=== PATIENT | male | born 1955 | race Two or more races ===

== ENCOUNTER → 2023-04-17 | Outpatient (REF) | payer OTHER | LOC: M SFHCDERM 12:28 | PROVIDERS: ATTEND Nurse Practitioner Family | DX: C44.329 Squamous cell carcinoma of skin of other parts of face (principal) ==

== ENCOUNTER 2023-07-05 08:34 | Inpatient (IN) | payer OTHER ==
[2023-07-05] VITALS (12 sets, daily range): BP systolic 97–128; BP diastolic 52–70; TEMP 96.6–98.8; O2SAT 93–98
[~2023-07-05] VITALS: Ht 170.2 cm; Wt 97.0 kg
[2023-07-05] MEDS ORDERED: cefTRIAXone SOD 2 GM in D5W MINI-BAG PLUS 50 ML IV ONE (09:05)
[2023-07-05] MEDS ORDERED: PANTOPRAZOLE 40MG VIAL IV ONE (09:05)
[2023-07-05] MEDS ORDERED: NS 500 ML IV ONE (09:05)
[2023-07-05] MEDS: NS IV ONE ×2 (09:05→09:30)
[2023-07-05 09:27] LABS: VENOUS BASE EXCESS -2.1 (-2.0-2.0); VENOUS HCO3 22.9 MMOL/L (23.0-27.0); VENOUS O2 SATURATION 94.2 % (60.0-80.0); VENOUS PARTIAL PRESSURE CO2 40.4 mmHg (38.0-50.0); VENOUS PH 7.372 UNITS (7.330-7.430); VENOUS STANDARD HCO3 22.6 MMOL/L; VENOUS TOTAL CO2 24.2 MMOL/L (24.0-28.0)
[2023-07-05 09:31] LABS: BASO # 0.1 10^3/uL (0.0-0.2); BASO % 0.4 % (0.0-1.0); EOS # 0.1 10^3/uL (0.0-0.5); EOS % 0.7 % (0.0-3.0); HEMATOCRIT 26.4 % (42.0-52.0); HEMOGLOBIN 8.6 g/dl (13.5-17.5); LYMPH # 1.6 10^3/uL (1.5-5.0); MEAN CORPUSCULAR HEMOGLOBIN 30.6 pg (27.0-33.0); MEAN CORPUSCULAR HGB CONC 32.6 g/dl (32.0-36.5); MONO # 1.1 10^3/uL (0.0-0.8); MONO % 7.7 % (2.0-8.0); NEUTROPHILS # 10.8 10^3/uL (1.5-8.5); NEUTROPHILS % 78.5 % (36.0-66.0); PLATELET COUNT, AUTOMATED 358 10^3/uL (150-450); RED BLOOD COUNT 2.81 10^6/uL (4.30-6.10); WHITE BLOOD COUNT 13.7 10^3/uL (4.0-10.0)
[2023-07-05 09:46] LABS: INR 1.12; PROTHROMBIN TIME 14.1 SECONDS (12.5-14.5)
[2023-07-05 09:57] LABS: OSMOLALITY SERUM 305 MOSM/KG (280-301)
[2023-07-05 09:58] LABS: ETHYL ALCOHOL (ETHANOL) 0.004 % (0.000-0.010)
[2023-07-05 09:59] LABS: ALBUMIN 2.4 G/DL (3.2-5.2); ALKALINE PHOSPHATASE 56 U/L (46-116); ALT/SGPT 17 U/L (7.0-40); AST/SGOT 18 U/L (<34); BILIRUBIN,DIRECT 0.2 MG/DL (<0.4); BILIRUBIN,TOTAL 0.4 MG/DL (0.3-1.2); BLOOD UREA NITROGEN 44 MG/DL (9-23); CALCIUM LEVEL 8.2 MG/DL (8.3-10.6); CARBON DIOXIDE LEVEL 23 MMOL/L (20-31); CHLORIDE LEVEL 105 MMOL/L (98-107); CREATININE FOR GFR 1.21 MG/DL (0.70-1.30); GLOMERULAR FILTRATION RATE > 60.0 (>49); GLUCOSE, FASTING 247 MG/DL (74-106); POTASSIUM SERUM 5.7 MMOL/L (3.5-5.1); SALICYLATE LEVEL < 3.0 MG/DL (<30); SODIUM LEVEL 139 MMOL/L (136-145); TOTAL PROTEIN 5.4 G/DL (5.7-8.2)
[2023-07-05 10:01] LABS: THYROID STIMULATING HORMONE 0.535 uIU/ML (0.55-4.78)
[2023-07-05] MEDS ORDERED: ONDANSETRON 4MG 2ML VIAL IV ONE (10:20)
[2023-07-05] MEDS ORDERED: ISOVUE-370 76% 100ML VIAL As Ordered ONE (10:50)
[2023-07-05] MEDS ORDERED: fentaNYL 100 MCG/2 ML INJECTION IV PRN (11:30)
[2023-07-05] MEDS: SUCRALFATE SUSP 1GM/10ML UD PO SCH ×2 (11:38→17:44)
[2023-07-05] MEDS: OCTREOTIDE ACETATE 100MCG/ML VIAL **IV ADMINISTRATION ONLY IV SCH ×2 (11:39→20:14)
[2023-07-05 11:48] LABS: LIPASE 26 U/L (12-53)
[2023-07-05] MEDS ORDERED: MED REC IN PROGRESS XX SCH (12:10)
[2023-07-05] MEDS ORDERED: TRUL0.5I SC (13:14)
[2023-07-05] MEDS ORDERED: ACET-910 PO (13:14)
[2023-07-05] MEDS ORDERED: LISI40TA4 PO (13:14)
[2023-07-05] MEDS ORDERED: METF10004 PO (13:14)
[2023-07-05] MEDS ORDERED: VITA1TAB35 PO (13:14)
[2023-07-05] MEDS ORDERED: VITA-176 PO (13:14)
[2023-07-05] MEDS ORDERED: LORA1TAB23 PO (13:14)
[2023-07-05] MEDS ORDERED: ATOR40TA75 PO (13:14)
[2023-07-05] MEDS ORDERED: DICL100G10 TOP (13:14)
[2023-07-05] MEDS ORDERED: METO25TA4 PO (13:14)
[2023-07-05] MEDS ORDERED: MIRT-88 PO (13:14)
[2023-07-05] MEDS ORDERED: METH-1165 PO (13:14)
[2023-07-05] MEDS ORDERED: ASPI81CH33 PO (13:14)
[2023-07-05] MEDS ORDERED: HOME MED LIST COMPLETE! XX SCH (13:30)
[2023-07-05] MEDS ORDERED: GLUCAGON INJ 1MG VIAL SC PRN (16:15)
[2023-07-05] MEDS ORDERED: GLUCOSE 4GM CHEW TABLET PO PRN (16:15)
[2023-07-05] MEDS ORDERED: DEXTROSE 50% 50ML SYRINGE IV PRN (16:15)
[2023-07-05] MEDS ORDERED: ACETAMINOPHEN *IV* 1,000 MG in IV 1 EA IV ONE (17:00)
[2023-07-05 17:04] LABS: HEMATOCRIT 27.8 % (42.0-52.0); HEMOGLOBIN 9.3 g/dl (13.5-17.5)
[2023-07-05] MEDS: INSULIN LISPRO (NovoLOG) PER UNIT SC SCH ×2 (17:30→20:16)
[2023-07-05] MEDS: MIRTAZAPINE 15 MG TAB PO SCH (20:14)
[2023-07-05] MEDS: PANTOPRAZOLE 40MG VIAL IV SCH (20:14)
[2023-07-05] MEDS: LORazepam 0.5 MG TAB PO SCH (20:14)
[2023-07-06 00:02] VITALS: BP 111/55; TEMP 96.7; O2SAT 97
[2023-07-06] MEDS: SUCRALFATE SUSP 1GM/10ML UD PO SCH ×4 (00:10→17:34)
[2023-07-06 02:23] LABS: HEMATOCRIT 30.1 % (42.0-52.0)
[2023-07-06 04:10] VITALS: BP 119/60; TEMP 96.7; O2SAT 94
[2023-07-06 05:29] LABS: BASO # 0.1 10^3/uL (0.0-0.2); BASO % 0.8 % (0.0-1.0); EOS # 0.4 10^3/uL (0.0-0.5); EOS % 3.8 % (0.0-3.0); HEMATOCRIT 29.8 % (42.0-52.0); HEMOGLOBIN 9.9 g/dl (13.5-17.5); LYMPH # 3.4 10^3/uL (1.5-5.0); LYMPH % 31.9 % (24.0-44.0); MEAN CORPUSCULAR HEMOGLOBIN 30.6 pg (27.0-33.0); MEAN CORPUSCULAR HGB CONC 33.2 g/dl (32.0-36.5); MONO # 1.1 10^3/uL (0.0-0.8); MONO % 10.3 % (2.0-8.0); NEUTROPHILS # 5.6 10^3/uL (1.5-8.5); NEUTROPHILS % 52.8 % (36.0-66.0); PLATELET COUNT, AUTOMATED 318 10^3/uL (150-450); RED BLOOD COUNT 3.24 10^6/uL (4.30-6.10); WHITE BLOOD COUNT 10.6 10^3/uL (4.0-10.0)
[2023-07-06] MEDS: OCTREOTIDE ACETATE 100MCG/ML VIAL **IV ADMINISTRATION ONLY IV SCH ×2 (05:33→12:22)
[2023-07-06 05:55] LABS: BLOOD UREA NITROGEN 33 MG/DL (9-23); CALCIUM LEVEL 8.1 MG/DL (8.3-10.6); CARBON DIOXIDE LEVEL 26 MMOL/L (20-31); CHLORIDE LEVEL 106 MMOL/L (98-107); CREATININE FOR GFR 0.94 MG/DL (0.70-1.30); GLOMERULAR FILTRATION RATE > 60.0 (>49); GLUCOSE, FASTING 128 MG/DL (74-106); SODIUM LEVEL 139 MMOL/L (136-145)
[2023-07-06 08:02] VITALS: BP 128/65; TEMP 96.8; O2SAT 96
[2023-07-06] MEDS: PANTOPRAZOLE 40MG VIAL IV SCH ×2 (08:24→20:42)
[2023-07-06] MEDS: INSULIN LISPRO (NovoLOG) PER UNIT SC SCH ×4 (08:26→21:00)
[2023-07-06 11:19] LABS: HEMATOCRIT 31.1 % (42.0-52.0); HEMOGLOBIN 10.5 g/dl (13.5-17.5)
[2023-07-06 11:49] VITALS: BP 135/66; TEMP 97; O2SAT 96
[2023-07-06] MEDS: ONDANSETRON 4MG 2ML VIAL IV PRN (12:53)
[2023-07-06 19:00] VITALS: BP 134/64; TEMP 97; O2SAT 95
[2023-07-06] MEDS: LORazepam 0.5 MG TAB PO SCH (20:42)
[2023-07-06] MEDS: MIRTAZAPINE 15 MG TAB PO SCH (20:43)
[2023-07-06 23:19] LABS: HEMATOCRIT 28.8 % (42.0-52.0); HEMOGLOBIN 9.8 g/dl (13.5-17.5)
[2023-07-07] MEDS: SUCRALFATE SUSP 1GM/10ML UD PO SCH ×2 (01:00→06:15)
[2023-07-07 03:06] VITALS: BP 139/58; TEMP 97.5; O2SAT 95
[2023-07-07] MEDS: ONDANSETRON 4MG 2ML VIAL IV PRN (03:10)
[2023-07-07 06:19] LABS: BASO # 0.1 10^3/uL (0.0-0.2); BASO % 1.1 % (0.0-1.0); EOS # 0.6 10^3/uL (0.0-0.5); EOS % 6.8 % (0.0-3.0); HEMATOCRIT 29.6 % (42.0-52.0); HEMOGLOBIN 9.7 g/dl (13.5-17.5); LYMPH # 3.5 10^3/uL (1.5-5.0); LYMPH % 37.5 % (24.0-44.0); MEAN CORPUSCULAR HEMOGLOBIN 30.3 pg (27.0-33.0); MEAN CORPUSCULAR HGB CONC 32.8 g/dl (32.0-36.5); MEAN CORPUSCULAR VOLUME 92.5 fl (80.0-96.0); MONO % 10.2 % (2.0-8.0); NEUTROPHILS # 4.1 10^3/uL (1.5-8.5); NEUTROPHILS % 44.1 % (36.0-66.0); PLATELET COUNT, AUTOMATED 369 10^3/uL (150-450); WHITE BLOOD COUNT 9.3 10^3/uL (4.0-10.0)
[2023-07-07 06:42] LABS: BLOOD UREA NITROGEN 18 MG/DL (9-23); CALCIUM LEVEL 8.6 MG/DL (8.3-10.6); CARBON DIOXIDE LEVEL 28 MMOL/L (20-31); CHLORIDE LEVEL 106 MMOL/L (98-107); CREATININE FOR GFR 0.93 MG/DL (0.70-1.30); GLOMERULAR FILTRATION RATE > 60.0 (>49); GLUCOSE, FASTING 107 MG/DL (74-106); POTASSIUM SERUM 4.5 MMOL/L (3.5-5.1); SODIUM LEVEL 142 MMOL/L (136-145)
[2023-07-07] MEDS ORDERED: ACETAMINOPHEN TAB 650MG DOSE (2X325MG) PO PRN (07:10)
[2023-07-07 07:40] VITALS: BP 140/64; TEMP 96.5; O2SAT 94
[2023-07-07] MEDS: INSULIN LISPRO (NovoLOG) PER UNIT SC SCH (08:03)
[2023-07-07] MEDS: PANTOPRAZOLE 40MG VIAL IV SCH (08:04)
[2023-07-07] MEDS ORDERED: SUCR1SS PO (08:50)
[2023-07-07] MEDS ORDERED: PANT40TA29 PO (08:50)
[2023-07-07] MEDS ORDERED: CARA1TAB6 PO (10:17)
== END 2023-07-07 11:40 | disposition home or self-care (01) | DRG 378 ==
LOC: M ED 08:34 → EDBD 08:34 → M ED INP 12:33 → ENRESERV 12:44 → M PCU 13:28
PROVIDERS: ADMIT Internal Medicine Nephrology; ATTEND Internal Medicine Nephrology
PROC: 30233N1 Transfusion of Nonautologous Red Blood Cells into Peripheral Vein, Percutaneous Approach (ICD-10-PCS; principal; 2023-07-05)
DX: K29.71 Gastritis, unspecified, with bleeding (principal); D59.12 Cold autoimmune hemolytic anemia; D62 Acute posthemorrhagic anemia; I95.9 Hypotension, unspecified; R00.0 Tachycardia, unspecified; E11.42 Type 2 diabetes mellitus with diabetic polyneuropathy; I10 Essential (primary) hypertension; E78.5 Hyperlipidemia, unspecified; R55 Syncope and collapse; E55.9 Vitamin D deficiency, unspecified; K27.4 Chronic or unspecified peptic ulcer, site unspecified, with hemorrhage; K21.9 Gastro-esophageal reflux disease without esophagitis; F41.9 Anxiety disorder, unspecified; F32.A Depression, unspecified; I25.10 Atherosclerotic heart disease of native coronary artery without angina pectoris; Z92.21 Personal history of antineoplastic chemotherapy; Z85.46 Personal history of malignant neoplasm of prostate; Z90.79 Acquired absence of other genital organ(s); Z98.84 Bariatric surgery status; Z85.828 Personal history of other malignant neoplasm of skin; Z96.653 Presence of artificial knee joint, bilateral; Z79.82 Long term (current) use of aspirin; Z79.84 Long term (current) use of oral hypoglycemic drugs; Z79.899 Other long term (current) drug therapy; Z20.822 Contact with and (suspected) exposure to COVID-19; Z90.81 Acquired absence of spleen; Z85.72 Personal history of non-Hodgkin lymphomas

== ENCOUNTER 2023-08-19 20:15 | Emergency (ER) | payer OTHER, MEDICARE ==
[~2023-08-19] VITALS: Ht 167.6 cm; Wt 90.9 kg
[~2023-08-19 20:15] MED LIST: ACET-910 PO; ASPI81CH33 PO; ATOR40TA75 PO; CARA1TAB6 PO; DICL100G10 TOP; LISI40TA4 PO; LORA1TAB23 PO; METF10004 PO; METH-1165 PO; METO25TA4 PO; MIRT-88 PO; PANT40TA29 PO; SUCR1SS PO; TRUL0.5I SC; VITA-176 PO; VITA1TAB35 PO
[2023-08-19 20:54] LABS: BASO # 0.1 10^3/uL (0.0-0.2); BASO % 1.2 % (0.0-1.0); EOS # 0.5 10^3/uL (0.0-0.5); HEMATOCRIT 30.5 % (42.0-52.0); HEMOGLOBIN 9.6 g/dl (13.5-17.5); LYMPH # 3.2 10^3/uL (1.5-5.0); LYMPH % 35.7 % (24.0-44.0); MEAN CORPUSCULAR HEMOGLOBIN 27.3 pg (27.0-33.0); MEAN CORPUSCULAR HGB CONC 31.5 g/dl (32.0-36.5); MEAN CORPUSCULAR VOLUME 86.6 fl (80.0-96.0); MONO # 0.9 10^3/uL (0.0-0.8); MONO % 9.6 % (2.0-8.0); NEUTROPHILS # 4.3 10^3/uL (1.5-8.5); NEUTROPHILS % 47.3 % (36.0-66.0); PLATELET COUNT, AUTOMATED 639 10^3/uL (150-450); RED BLOOD COUNT 3.52 10^6/uL (4.30-6.10)
[2023-08-19] MEDS ORDERED: ONDANSETRON 4MG 2ML VIAL IV ONE (21:10)
[2023-08-19] MEDS ORDERED: MORPHINE 2 MG/ML 1ML VIAL IV ONE (21:10)
[2023-08-19 21:16] LABS: CK-MB VALUE MASS < 1.0 NG/ML (<3.6)
[2023-08-19 21:18] LABS: BLOOD UREA NITROGEN 20 MG/DL (9-23); CARBON DIOXIDE LEVEL 24 MMOL/L (20-31); CHLORIDE LEVEL 109 MMOL/L (98-107); CPK CREATINE PHOSPHOKINASE 65 U/L (46-171); CREATININE FOR GFR 0.95 MG/DL (0.70-1.30); GLOMERULAR FILTRATION RATE > 60.0 (>49); GLUCOSE, FASTING 118 MG/DL (74-106); MB/CK RELATIVE INDEX 1.53 (< OR =4); POTASSIUM SERUM 4.6 MMOL/L (3.5-5.1); SODIUM LEVEL 140 MMOL/L (136-145)
[2023-08-19 21:40] LABS: RSV AMPLIFICATION NEGATIVE (NEGATIVE)
[2023-08-19 22:51] LABS: CK-MB VALUE MASS 1.1 NG/ML (<3.6); MB/CK RELATIVE INDEX 1.48 (< OR =4)
[2023-08-19] MEDS ORDERED: NS 1,000 ML IV ONE (23:10)
[2023-08-20] MEDS ORDERED: ASPIRIN 81MG CHEW TABLET PO ONE (00:25)
[2023-08-20] MEDS ORDERED: HEPARIN DRIP 25,000 UNITS in IV 1 EA IV SCH (00:40)
[2023-08-20] MEDS: NITROGLYCERIN 0.4MG SUBL TABLET SL PRN ×2 (01:24→01:31)
[2023-08-20 01:31] VITALS: BP 140/85
[2023-08-20 01:53] LABS: INR 1.07; PARTIAL THROMBOPLASTIN TIME 26.9 SECONDS (24.8-34.2); PROTHROMBIN TIME 13.5 SECONDS (12.5-14.5)
[2023-08-20] MEDS ORDERED: ONDANSETRON 4MG 2ML VIAL IV ONE (02:45)
[2023-08-20] MEDS ORDERED: MORPHINE 4 MG/ML 1ML VIAL IV ONE (02:45)
[2023-08-20] MEDS ORDERED: MORPHINE 4 MG/ML 1ML VIAL IV PRN (07:15)
[2023-08-20 08:15] VITALS: BP 155/74; TEMP 96.9; O2SAT 94
== END 2023-08-20 08:27 | disposition short-term general hospital (02) ==
LOC: M ED 20:15 → EDBD 20:15 → M ED 08-20 08:27
DX: I21.4 Non-ST elevation (NSTEMI) myocardial infarction (principal); I47.10 Supraventricular tachycardia, unspecified; E11.9 Type 2 diabetes mellitus without complications; I10 Essential (primary) hypertension; K21.9 Gastro-esophageal reflux disease without esophagitis; E78.5 Hyperlipidemia, unspecified; Z79.82 Long term (current) use of aspirin; Z79.02 Long term (current) use of antithrombotics/antiplatelets; Z79.811 Long term (current) use of aromatase inhibitors; Z79.4 Long term (current) use of insulin; Z79.899 Other long term (current) drug therapy
CPT/HCPCS: 71045; 80048; 82550; 82553; 83880; 84484; 85025; 85610; 85730; 87631; 93005; 93041; 94760; 96374; 96375; 96376; 99285; J2405

== ENCOUNTER 2024-02-28 09:24 | Emergency (ER) | payer OTHER, MEDICARE ==
[~2024-02-28] VITALS: Ht 167.6 cm; Wt 90.9 kg
[2024-02-28 09:42] VITALS: BP 117/69; O2SAT 92
[2024-02-28 09:49] LABS: BASO # 0.1 10^3/uL (0.0-0.2); BASO % 1.2 % (0.0-1.0); EOS % 10.8 % (0.0-3.0); HEMATOCRIT 32.9 % (42.0-52.0); HEMOGLOBIN 10.5 g/dl (13.5-17.5); LYMPH # 2.1 10^3/uL (1.5-5.0); LYMPH % 22.8 % (24.0-44.0); MEAN CORPUSCULAR HEMOGLOBIN 27.5 pg (27.0-33.0); MEAN CORPUSCULAR HGB CONC 31.9 g/dl (32.0-36.5); MEAN CORPUSCULAR VOLUME 86.1 fl (80.0-96.0); MONO # 1.1 10^3/uL (0.0-0.8); MONO % 11.5 % (2.0-8.0); NEUTROPHILS # 4.9 10^3/uL (1.5-8.5); NEUTROPHILS % 53.3 % (36.0-66.0); PLATELET COUNT, AUTOMATED 449 10^3/uL (150-450); RED BLOOD COUNT 3.82 10^6/uL (4.30-6.10); WHITE BLOOD COUNT 9.2 10^3/uL (4.0-10.0)
[2024-02-28 10:00] LABS: INR 0.95; PROTHROMBIN TIME 12.4 SECONDS (12.5-14.5)
[2024-02-28 10:12] LABS: LIPASE 24 U/L (12-53)
[2024-02-28 10:14] LABS: ALBUMIN 2.9 G/DL (3.2-5.2); ALKALINE PHOSPHATASE 69 U/L (46-116); ALT/SGPT 19 U/L (7.0-40); AST/SGOT 19 U/L (<34); BILIRUBIN,DIRECT < 0.1 MG/DL (<0.4); BILIRUBIN,TOTAL 0.2 MG/DL (0.3-1.2); BLOOD UREA NITROGEN 18 MG/DL (9-23); CARBON DIOXIDE LEVEL 22 MMOL/L (20-31); CHLORIDE LEVEL 106 MMOL/L (98-107); CK-MB VALUE MASS < 1.0 NG/ML (<3.6); CREATININE FOR GFR 0.81 MG/DL (0.70-1.30); GLOMERULAR FILTRATION RATE > 60.0 (>49); GLUCOSE, FASTING 225 MG/DL (74-106); POTASSIUM SERUM 4.6 MMOL/L (3.5-5.1); SODIUM LEVEL 136 MMOL/L (136-145); TOTAL PROTEIN 6.4 G/DL (5.7-8.2)
[2024-02-28 10:20] LABS: CPK CREATINE PHOSPHOKINASE 67 U/L (46-171); MB/CK RELATIVE INDEX 1.49 (< OR =4)
[2024-02-28] MEDS ORDERED: AMLO25TA PO (10:26)
[2024-02-28] MEDS ORDERED: METH-1164 PO (10:26)
[2024-02-28] MEDS ORDERED: TRAZ-252 (10:26)
[2024-02-28] MEDS ORDERED: CLOP75TA2 (10:26)
[2024-02-28] MEDS ORDERED: SEMA1PEN2 SQ (10:26)
[2024-02-28] MEDS ORDERED: ISOVUE-370 76% 100ML VIAL As Ordered ONE (11:31)
[2024-02-28 13:41] VITALS: TEMP 97.5
== END 2024-02-28 13:43 | disposition home or self-care (01) ==
LOC: EDBD 09:24 → M ED 09:24
DX: R07.89 Other chest pain (principal); I25.119 Atherosclerotic heart disease of native coronary artery with unspecified angina pectoris; E11.9 Type 2 diabetes mellitus without complications; I10 Essential (primary) hypertension; E78.5 Hyperlipidemia, unspecified; R91.8 Other nonspecific abnormal finding of lung field; Z85.46 Personal history of malignant neoplasm of prostate; Z79.1 Long term (current) use of non-steroidal anti-inflammatories (NSAID); Z79.84 Long term (current) use of oral hypoglycemic drugs; Z79.4 Long term (current) use of insulin; Z79.899 Other long term (current) drug therapy
CPT/HCPCS: 36415; 71045; 71275; 74018; 80048; 80076; 82550; 82553; 83690; 84484; 85025; 85610; 87486; 87581; 87633; 87798; 93005; 93041; 94760; 99284; Q9967

== ENCOUNTER → 2024-06-22 | Outpatient (CLI) | payer MEDICARE, OTHER ==
[~2024-06-22] MED LIST changes: +AMLO25TA PO; +CLOP75TA2; +METH-1164 PO; +SEMA1PEN2 SQ; +TRAZ-252
[2024-06-22 15:07] LABS: BASO # 0.1 10^3/uL (0.0-0.2); BASO % 1.4 % (0.0-1.0); EOS # 0.4 10^3/uL (0.0-0.5); EOS % 5.3 % (0.0-3.0); HEMATOCRIT 38.5 % (42.0-52.0); HEMOGLOBIN 12.1 g/dl (13.5-17.5); LYMPH # 2.7 10^3/uL (1.5-5.0); MEAN CORPUSCULAR HEMOGLOBIN 28.5 pg (27.0-33.0); MEAN CORPUSCULAR HGB CONC 31.4 g/dl (32.0-36.5); MEAN CORPUSCULAR VOLUME 90.6 fl (80.0-96.0); MONO # 0.9 10^3/uL (0.0-0.8); MONO % 10.9 % (2.0-8.0); PLATELET COUNT, AUTOMATED 404 10^3/uL (150-450); RED BLOOD COUNT 4.25 10^6/uL (4.30-6.10); WHITE BLOOD COUNT 8.1 10^3/uL (4.0-10.0)
[2024-06-22 15:15] LABS: APPEARANCE, URINE CLEAR (CLEAR); BACTERIA, URINE AUTO NEGATIVE (NEGATIVE); BILIRUBIN, URINE AUTO NEGATIVE (NEGATIVE); BLOOD, URINE BLOOD NEGATIVE (NEGATIVE); COLOR, URINE YELLOW (YELLOW); GLUCOSE, URINE (UA) AUTO NEGATIVE (NEGATIVE); KETONE, URINE AUTO NEGATIVE (NEGATIVE); LEUKOCYTE ESTERASE, URINE AUTO NEGATIVE (NEGATIVE); MUCUS, URINE SMALL (NEGATIVE); NITRITE, URINE AUTO NEGATIVE (NEGATIVE); PROTEIN, URINE AUTO NEGATIVE (NEGATIVE); RBC, URINE AUTO 1 /HPF (0-3); SPECIFIC GRAVITY URINE AUTO 1.021 (1.002-1.035); SQUAMOUS EPITHELIAL CELL UR AU 2 /HPF (0-6); WBC, URINE AUTO 2 /HPF (0-3)
[2024-06-22 15:39] LABS: FERRITIN 11.5 NG/ML (10.5-307.3)
== END ==
LOC: M PLALAB 09:31
PROVIDERS: ATTEND Internal Medicine Hematology
DX: D59.12 Cold autoimmune hemolytic anemia (principal); D50.9 Iron deficiency anemia, unspecified

== ENCOUNTER 2024-07-08 13:32 | Outpatient (CLI) | payer OTHER, MEDICARE ==
[~2024-07-08] VITALS: Ht 167.6 cm; Wt 91.3 kg
[~2024-07-08 13:32] MED LIST changes: +ALBUTEROL SULFATE 2.5MG/0.5ML INH NEB SOLN INH PRN; +EPINEPHrine INJ 1 MG/ML 1ML AMP IM PRN; +NS 1,000 ML IV SCH; +diphenhydrAMINE 50MG/ML VIAL IV PRN
[2024-07-08 13:57] VITALS: BP 139/72; O2SAT 99
[2024-07-08] MEDS: IRON SUCROSE 300 MG in NS 250 ML IV ONE (14:33)
[2024-07-08 15:39] VITALS: BP 136/70; O2SAT 94
[2024-07-08] MEDS: methylPREDNISolone 125MG 2ML VIAL IV PRN (15:44)
[2024-07-08] MEDS: NS 250 ML IV ONE (16:00)
[2024-07-08 16:30] VITALS: BP 131/75; O2SAT 18
== END 2024-07-08 16:30 ==
LOC: M INFU 13:32
PROVIDERS: ATTEND Internal Medicine Hematology
DX: D50.9 Iron deficiency anemia, unspecified (principal)
CPT/HCPCS: 96361; 96365; J1756; J2919

== ENCOUNTER → 2024-07-14 | Outpatient (CLI) | payer OTHER, MEDICARE ==
[~2024-07-14] MED LIST changes: -ALBUTEROL SULFATE 2.5MG/0.5ML INH NEB SOLN INH PRN; -EPINEPHrine INJ 1 MG/ML 1ML AMP IM PRN; -NS 1,000 ML IV SCH; -diphenhydrAMINE 50MG/ML VIAL IV PRN
[2024-07-14 16:00] LABS: BLOOD UREA NITROGEN 16 MG/DL (9-23); CALCIUM LEVEL 9.5 MG/DL (8.3-10.6); CARBON DIOXIDE LEVEL 27 MMOL/L (20-31); CHLORIDE LEVEL 108 MMOL/L (98-107); CREATININE FOR GFR 0.81 MG/DL (0.70-1.30); GLOMERULAR FILTRATION RATE > 60.0 (>49); GLUCOSE, FASTING 192 MG/DL (74-106); PHOSPHORUS LEVEL 3.2 MG/DL (2.4-5.1); POTASSIUM SERUM 4.8 MMOL/L (3.5-5.1); SODIUM LEVEL 141 MMOL/L (136-145)
== END ==
LOC: M PLALAB 13:54
PROVIDERS: ATTEND Internal Medicine Hematology
DX: D59.12 Cold autoimmune hemolytic anemia (principal)

== ENCOUNTER → 2024-07-16 | Outpatient (CLI) | payer OTHER, MEDICARE ==
[~2024-07-16] MED LIST changes: +GASTROGRAFIN SOLUTION 30ML As Ordered ONE; +ISOVUE-370 76% 100ML VIAL As Ordered ONE
== END ==
LOC: M RAD 10:49
PROVIDERS: ATTEND Internal Medicine Hematology
DX: D59.12 Cold autoimmune hemolytic anemia (principal)
CPT/HCPCS: 74177; Q9963; Q9967

== ENCOUNTER 2024-07-22 13:09 | Outpatient (CLI) | payer MEDICARE, OTHER ==
[~2024-07-22] VITALS: Ht 167.6 cm; Wt 92.7 kg
[~2024-07-22 13:09] MED LIST changes: +ALBUTEROL SULFATE 2.5MG/0.5ML INH NEB SOLN INH PRN; +EPINEPHrine INJ 1 MG/ML 1ML AMP IM PRN; -GASTROGRAFIN SOLUTION 30ML As Ordered ONE; -ISOVUE-370 76% 100ML VIAL As Ordered ONE; +diphenhydrAMINE 50MG/ML VIAL IV PRN; +methylPREDNISolone 125MG 2ML VIAL IV PRN
[2024-07-22 13:25] VITALS: BP 136/65; O2SAT 98
[2024-07-22] MEDS ORDERED: NS 1,000 ML IV SCH (13:30)
[2024-07-22] MEDS: FERRIC CARBOXYMALTOSE 750 MG (VIAL MATE) IN 100ML NS IV ONE (13:44)
[2024-07-22 14:25] VITALS: BP 140/66; O2SAT 98
== END 2024-07-22 14:30 ==
LOC: M INFU 13:09
PROVIDERS: ATTEND Internal Medicine Hematology
DX: D64.9 Anemia, unspecified (principal)
CPT/HCPCS: 96365; J1439

== ENCOUNTER → 2024-09-22 | Outpatient (REF) | payer MEDICARE, OTHER ==
[~2024-09-22] MED LIST changes: -ALBUTEROL SULFATE 2.5MG/0.5ML INH NEB SOLN INH PRN; -EPINEPHrine INJ 1 MG/ML 1ML AMP IM PRN; -diphenhydrAMINE 50MG/ML VIAL IV PRN; -methylPREDNISolone 125MG 2ML VIAL IV PRN
== END ==
LOC: M SFHCDERM 17:24
PROVIDERS: ATTEND Nurse Practitioner Family
DX: C44.519 Basal cell carcinoma of skin of other part of trunk (principal)

== ENCOUNTER → 2024-09-22 | Outpatient (CLI) | payer OTHER, MEDICARE ==
[2024-09-22 11:10] LABS: BASO # 0.1 10^3/uL (0.0-0.2); BASO % 1.3 % (0.0-1.0); EOS # 0.5 10^3/uL (0.0-0.5); EOS % 5.5 % (0.0-3.0); HEMATOCRIT 42.1 % (42.0-52.0); HEMOGLOBIN 13.5 g/dl (13.5-17.5); LYMPH # 2.6 10^3/uL (1.5-5.0); LYMPH % 30.2 % (24.0-44.0); MEAN CORPUSCULAR HEMOGLOBIN 30.9 pg (27.0-33.0); MEAN CORPUSCULAR HGB CONC 32.1 g/dl (32.0-36.5); MEAN CORPUSCULAR VOLUME 96.3 fl (80.0-96.0); MONO # 0.9 10^3/uL (0.0-0.8); MONO % 10.4 % (2.0-8.0); NEUTROPHILS # 4.4 10^3/uL (1.5-8.5); NEUTROPHILS % 52.2 % (36.0-66.0); PLATELET COUNT, AUTOMATED 456 10^3/uL (150-450); RED BLOOD COUNT 4.37 10^6/uL (4.30-6.10); WHITE BLOOD COUNT 8.5 10^3/uL (4.0-10.0)
[2024-09-22 11:24] LABS: C REACTIVE PROTEIN QUANTITATIV < 0.50 MG/DL (<1.0)
[2024-09-22 11:27] LABS: FERRITIN 96.1 NG/ML (10.5-307.3)
== END ==
LOC: M PLALAB 08:37
PROVIDERS: ATTEND Internal Medicine Hematology
DX: D64.9 Anemia, unspecified (principal)

== ENCOUNTER 2024-10-21 14:07 | Emergency (ER) | payer OTHER ==
[~2024-10-21] VITALS: Ht 167.6 cm; Wt 92.6 kg
[2024-10-21 14:32] VITALS: TEMP 96.6
[2024-10-21] MEDS ORDERED: AMLO1TAB25 PO (14:34)
[2024-10-21] MEDS ORDERED: FERR325T3 PO (14:34)
[2024-10-21] MEDS ORDERED: NITR0.4S14 SL (14:34)
[2024-10-21] MEDS ORDERED: EFFE75CA2 PO (14:34)
[2024-10-21] MEDS ORDERED: VALS40TA9 PO (14:34)
[2024-10-21] MEDS ORDERED: LYRI200C PO (14:34)
[2024-10-21] MEDS ORDERED: CARV12.5 PO (14:34)
[2024-10-21 15:00] LABS: BASO # 0.1 10^3/uL (0.0-0.2); BASO % 1.2 % (0.0-1.0); EOS # 0.3 10^3/uL (0.0-0.5); EOS % 3.4 % (0.0-3.0); HEMATOCRIT 39.8 % (42.0-52.0); HEMOGLOBIN 13.3 g/dl (13.5-17.5); LYMPH # 2.5 10^3/uL (1.5-5.0); LYMPH % 32.8 % (24.0-44.0); MEAN CORPUSCULAR HEMOGLOBIN 32.4 pg (27.0-33.0); MEAN CORPUSCULAR HGB CONC 33.4 g/dl (32.0-36.5); MEAN CORPUSCULAR VOLUME 96.8 fl (80.0-96.0); MONO # 0.8 10^3/uL (0.0-0.8); MONO % 10.3 % (2.0-8.0); PLATELET COUNT, AUTOMATED 347 10^3/uL (150-450); RED BLOOD COUNT 4.11 10^6/uL (4.30-6.10); WHITE BLOOD COUNT 7.7 10^3/uL (4.0-10.0)
[2024-10-21 15:08] LABS: LIPASE 27 U/L (12-53)
[2024-10-21 15:11] LABS: ALBUMIN 3.3 G/DL (3.2-5.2); ALKALINE PHOSPHATASE 71 U/L (40-129); ALT/SGPT 25 U/L (7.0-40); AST/SGOT 24 U/L (<34); BILIRUBIN,DIRECT 0.1 MG/DL (<0.4); BILIRUBIN,TOTAL 0.4 MG/DL (0.3-1.2); BLOOD UREA NITROGEN 20 MG/DL (9-23); CALCIUM LEVEL 8.6 MG/DL (8.3-10.6); CARBON DIOXIDE LEVEL 26 MMOL/L (20-31); CHLORIDE LEVEL 107 MMOL/L (98-107); CK-MB VALUE MASS < 1.0 NG/ML (<3.6); CREATININE FOR GFR 0.89 MG/DL (0.70-1.30); GLOMERULAR FILTRATION RATE > 60.0 (>49); GLUCOSE, FASTING 151 MG/DL (74-106); POTASSIUM SERUM 4.8 MMOL/L (3.5-5.1); SODIUM LEVEL 143 MMOL/L (136-145); TOTAL PROTEIN 7.1 G/DL (5.7-8.2)
[2024-10-21 15:31] LABS: CPK CREATINE PHOSPHOKINASE 62 U/L (46-171); MB/CK RELATIVE INDEX 1.61 (< OR =4)
[2024-10-21 16:28] LABS: CK-MB VALUE MASS < 1.0 NG/ML (<3.6); CPK CREATINE PHOSPHOKINASE 50 U/L (46-171)
[2024-10-21] MEDS ORDERED: ISOVUE-370 76% 100ML VIAL As Ordered ONE (16:56)
[2024-10-21 17:37] VITALS: O2SAT 96
[2024-10-21 17:45] VITALS: BP 140/67
== END 2024-10-21 17:57 | disposition home or self-care (01) ==
LOC: EDBD 14:07 → M ED 14:07
DX: R07.89 Other chest pain (principal); R94.31 Abnormal electrocardiogram [ECG] [EKG]; I25.119 Atherosclerotic heart disease of native coronary artery with unspecified angina pectoris; E11.9 Type 2 diabetes mellitus without complications; I10 Essential (primary) hypertension; E78.5 Hyperlipidemia, unspecified; F32.A Depression, unspecified; Z79.1 Long term (current) use of non-steroidal anti-inflammatories (NSAID); Z79.84 Long term (current) use of oral hypoglycemic drugs; Z79.4 Long term (current) use of insulin; Z79.899 Other long term (current) drug therapy
CPT/HCPCS: 36415; 71045; 71275; 80048; 80076; 82550; 82553; 83690; 84484; 85025; 93005; 93041; 94760; 99285; Q9967